=== PATIENT | female | born 1975 | race American Indian/Alaskan Native ===

== ENCOUNTER 2017-03-25 01:09 | Emergency (ER) | payer MEDICAID ==
[2017-03-25 01:21] VITALS: BP 137/85; PULSE 71; RESP 17; TEMP 98.4; O2SAT 100
--- NOTE | 2017-03-25 02:14 | ED PDOC ---
HPI: Psych/Substance Abuse Time Seen by Provider: 03/25/17 02:08 Chief Complaint (Nursing): Alcohol Ingestion Chief Complaint (Provider): intox ED Caveat: Intoxicated Additional Complaint(s): 41yo f bought to ED for intoxication by EMS-is here with friend who is not intoxicated. pt with slurred speech and unstable gait. Past Medical History Reviewed: Historical Data, Nursing Documentation, Vital Signs Vital Signs: Last Vital Signs Temp 98.4 F 03/25/17 01:14 Pulse 71 03/25/17 01:14 Resp 17 03/25/17 01:14 BP 137/85 03/25/17 01:14 Pulse Ox 100 03/25/17 01:14 - Medical History PMH: Asthma - Family History Family History: States: No Known Family Hx - Allergies Allergies/Adverse Reactions: Allergies Allergy/AdvReac Type Severity Reaction Status Date / Time No Known Allergies Allergy Verified 03/25/17 01:14 Review of Systems ROS Statement: Except As Marked, All Systems Reviewed And Found Negative Constitutional: Negative for: Fever, Chills Gastrointestinal: Negative for: Nausea, Vomiting, Abdominal Pain Physical Exam - Reviewed Nursing Documentation Reviewed: Yes Vital Signs Reviewed: Yes - Physical Exam Appears: Positive for: Non-toxic, No Acute Distress. Negative for: Well ( intoxicated) Head Exam: Positive for: ATRAUMATIC, NORMAL INSPECTION, NORMOCEPHALIC Skin: Positive for: Normal Color Eye Exam: Positive for: EOMI, Normal appearance, PERRL Cardiovascular/Chest: Positive for: Regular Rate, Rhythm Respiratory: Positive for: CNT, Normal Breath Sounds Neurologic/Psych: Positive for: Alert, Oriented - ECG O2 Sat by Pulse Oximetry: 100 Medical Decision Making Medical Decision Making: pt well clinically is stable to be d/c with friend who is sober. states they will take a cab to return home, . Disposition - Clinical Impression Clinical Impression: Alcohol abuse - Patient ED Disposition Is Patient to be Admitted: No - Disposition Disposition: Routine/Home Disposition Time: 02:12 Condition: STABLE Instructions: Alcohol Intoxication (ED)
== END 2017-03-25 02:36 | disposition home or self-care (01) ==
LOC: H.ER 01:09
DX: F10.10 Alcohol abuse, uncomplicated (principal)